=== PATIENT | female | born 1995 | race Caucasian/White ===

== ENCOUNTER 2024-04-13 04:40 | Emergency (ER) | payer BC ==
[~2024-04-13] VITALS: Ht 175.3 cm; Wt 86.9 kg
[2024-04-13 05:06] LABS: EOSINOPHILS # (AUTO) 0.5 X10'3 (0-0.9)
[2024-04-13 05:08] LABS: BASOPHILS % (AUTO) 0.4 % (0-1); EOSINOPHILS % (AUTO) 5.1 % (0-6); HEMATOCRIT 44.1 % (35.0-45.0); HEMOGLOBIN 15.1 g/dl (12.0-16.0); LYMPHOCYTES # (AUTO) 3.4 X10'3 (1.1-4.8); LYMPHOCYTES % (AUTO) 31.7 % (21-51); MEAN CORPUSCULAR HEMOGLOBIN 32.7 PG (27.0-31.0); MEAN CORPUSCULAR HGB CONC 34.2 g/dL (33.0-36.5); MEAN CORPUSCULAR VOLUME 95.4 FL (78-98); MEAN PLATELET VOLUME 8.3 FL (7.4-10.4); MONOCYTES # (AUTO) 0.9 X10'3 (0-0.9); MONOCYTES % (AUTO) 8.6 % (2-12); NEUTROPHILS # (AUTO) 5.8 X10'3 (1.8-7.7); NEUTROPHILS % (AUTO) 54.2 % (42-75); PLATELET COUNT 258 X10'3 (140-440); RED BLOOD COUNT 4.62 X10'6 (4.20-5.60); RED CELL DISTRIBUTION WIDTH 12.8 % (11.5-14.5); WHITE BLOOD COUNT 10.8 X10'3 (4.5-11.0)
[2024-04-13 05:09] VITALS: TEMP 98
[2024-04-13 05:28] LABS: ALANINE AMINOTRANSFERASE 17 U/L (12-78); ALBUMIN 4.1 G/DL (3.4-5.0); ALBUMIN/GLOBULIN RATIO 1.4 (1.1-1.5); ALKALINE PHOSPHATASE 83 IU/L (46-116); ANION GAP 7 (8-16); ASPARTATE AMINO TRANSFERASE 17 U/L (10-37); BILIRUBIN,TOTAL 0.5 MG/DL (0.1-1.0); BLOOD UREA NITROGEN 10 MG/DL (7-18); BUN/CREATININE RATIO 15.9 (10.0-20.0); CALCIUM 8.8 MG/DL (8.5-10.1); CHLORIDE 104 MMOL/L (99-107); CREATININE 0.63 MG/DL (0.40-0.90); GLUCOSE 102 MG/DL (70-104); POTASSIUM 3.4 MMOL/L (3.5-5.1); SODIUM 139 MMOL/L (135-145); TOTAL CARBON DIOXIDE 27.7 MMOL/L (24-32); eCRCL 138 ML/MIN; eGFR > 90 ML/MIN
[2024-04-13 05:36] LABS: PRO BRAIN NATRIURETIC PEPTIDE < 30 PG/ML (0-125)
[2024-04-13] MEDS: potassium Cl 20 mEq SR tablet PO STA (06:49)
[2024-04-13] MEDS: acetaminophen 325mg tablet PO ONE (06:50)
[2024-04-13] MEDS: ketorolac trometh 15mg/ml vial 15 MG/ML ML IV ONE (08:49)
[2024-04-13 08:57] VITALS: BP 127/80; PULSE 80; RESP 15; O2SAT 99
== END 2024-04-13 09:10 | disposition home or self-care (01) ==
LOC: ER 04:41
DX: M25.512 Pain in left shoulder (principal); I49.8 Other specified cardiac arrhythmias
CPT/HCPCS: 36415; 71045; 80053; 83880; 84484; 85025; 85379; 93005; 96374; 99285; J1885

== ENCOUNTER 2025-07-10 16:13 | Emergency (ER) | payer BC ==
[~2025-07-10] VITALS: Ht 175.3 cm; Wt 80.4 kg
[2025-07-10 16:18] VITALS: BP 138/97; PULSE 90; RESP 18; O2SAT 99
--- NOTE | 2025-07-10 16:59 | RADIOLOGY REPORT ---
INDICATION: fall TECHNIQUE: 3 radiographic views of the left shoulder were obtained. COMPARISON: None FINDINGS/IMPRESSION: No acute fracture or dislocations. No significant degenerative changes. No acute soft tissue abnormalities. No radiographic foreign body. Visualized portions of the lungs are clear.
--- NOTE | 2025-07-10 17:04 | RADIOLOGY REPORT ---
INDICATION: fall TECHNIQUE: 3 views of the cervical spine were obtained. COMPARISON: None FINDINGS: The cervical spine is visualized from C1-C7. No acute cervical fractures or subluxations are identified. Alignment appears unremarkable. Prevertebral soft tissues are within normal limits. IMPRESSION: 1. No acute cervical fracture or subluxations.
--- NOTE | 2025-07-10 18:35 | Physician Documentation ---
History of Present Illness ~ Chief Complaint: Mechanical Fall Stated Complaint: FALL/L SIDE PAIN Time Seen by MD: 18:12 HPI This is a 30-year-old female who presents with left shoulder pain, left buttock pain, and right lateral neck pain after a slip and fall on a set of stairs in which she then slid down on her side approximately 10 stairs last night. Patient reports hitting the back of her head on stairs with mild pain to the area. No loss of consciousness reported, no blood thinners reported. Tetanus within 5 Years?: Yes Medication Reconciliation Allergies: Coded Allergies: No Known Allergies (Unverified , 07/10/25) Scheduled Ibuprofen (Ibuprofen), 1 TAB PO Q8H Lidocaine (Lidoderm), 1 PATCH TOP DAILY Past Medical History Past Medical History: No Pertinent History Review of Systems ROS As stated above in the HPI, otherwise all systems are reviewed and negative. Physical Exam Vital Signs: Temperature: 98.4, Source: Temporal, Heart Rate: 90, Respiratory Rate: 18, BP: 138/97, Pulse Oximetry: 99, Weight: 80.400 Oxygen Flow Rate: 0 Physical Exam VITALS: Reviewed and as above. GENERAL: Alert, nontoxic appearing, no apparent distress. HEENT: Right lateral neck mild tenderness to palpation. PERRLA, EOMI, no central C-spine tenderness. Posterior scalp mildly tender to palpation, no lacerations, no hematoma. RESPIRATORY: No increased work of breathing, no respiratory distress, speaking in full clear sentences CV: Brisk capillary refill to fingers of left hand, left radial pulse intact BACK: Left posterior shoulder and scapular tenderness. No central spinal tenderness. MUSCULOSKELETAL: Left posterior shoulder tender to palpation, no lateral or anterior left shoulder pain., no obvious deformity, range of motion intact to left elbow, wrist, and fingers. NEURO: Sensation intact to right extremity distal to injury. GCS 15 Progress Results/Orders Results/Orders Orders - [facility] (07/10/25 16:30) Shoulder, Complete (Min 2 Vws) (07/10/25 16:30) Completed Orders - [facility]UC[facility] SP[facility] (07/10/25 16:30) Shoulder, Complete (Min 2 Vws) (07/10/25 16:30) Vital Signs 12/29/25 12/29/25 16:18 18:50 Temp 98.4 98.4 Pulse 90 Resp 18 B/P (MAP) 138/97 Pulse Ox 99 O2 Flow Rate 0 EKG/XRAY/CT/US/VASC/MRI Bone/Soft Tissue X-Ray (Spine) : Additional Comment Exam: [facility] INDICATION: fall TECHNIQUE: 3 views of the cervical spine were obtained. COMPARISON: None FINDINGS: The cervical spine is visualized from C1-C7. No acute cervical fractures or subluxations are identified. Alignment appears unremarkable. Prevertebral soft tissues are within normal limits. IMPRESSION: 1. No acute cervical fracture or subluxations. Electronically Signed by:CARMINA MCGEE MD Date & Time: 07/10/25 1702 Dictated by: CARMINA MCGEE MD Dictation date and time: 07/10/25 1630 I have reviewed and agree with the radiology report. I have reviewed and interpreted the imaging as: No vertebral fractures or acute misalignment Bone/Soft Tissue X-Ray (Ext.) : Additional Comment Exam: SHOULDER, COMPLETE (MIN 2 VWS) INDICATION: fall TECHNIQUE: 3 radiographic views of the left shoulder were obtained. COMPARISON: None FINDINGS/IMPRESSION: No acute fracture or dislocations. No significant degenerative changes. No acute soft tissue abnormalities. No radiographic foreign body. Visualized portions of the lungs are clear. Electronically Signed by:CARMINA MCGEE MD Date & Time: 07/10/25 1656 Dictated by: CARMINA MCGEE MD Dictation date and time: 07/10/25 1630 I have reviewed and agree with the radiology report. I have reviewed and interpreted the imaging as: No fracture or dislocation Medical Decision Making Additional information obtaine: N/A Findings This 30-year-old female presented with left shoulder pain, right lateral neck pain, and posterior head pain following a slip and fall in which she slid down a set of 10 stairs. Reassuringly patient reported no loss of consciousness and no blood thinner use. Imaging obtained demonstrating no fracture or traumatic misalignment of cervical spine and did not demonstrate evidence of fracture or dislocation to left shoulder. Suspect soft tissue injury to the area. Patient is otherwise well-appearing benign physical exam. Shared decision-making with the patient prescriptions for pain medications were prescribed patient is to follow up with the primary care provider. Patient provided careful return to care precautions, home care instructions and follow up instructions which he verbalized understanding of. Differential Dx:Considerations: Include: Closed head injury, Fracture(s), Intraabdominal injury, Pneumothorax, Cerebral contusion, Spine injury, Abrasion(s), Contusion(s), Laceration(s), Other (Shoulder dislocation, laceration.) Departure Time of Disposition: 18:39 Disposition: HOME / SELF CARE / HOMELESS Impression: Primary Impression: Shoulder pain Qualified Codes: M25.512 - Pain in left shoulder Additional Impressions: Neck pain on right side Head injury, acute, without loss of consciousness Qualified Codes: S09.90XA - Unspecified injury of head, initial encounter Condition: Improved Discharge Instructions: Shoulder Pain, [id number] Additional Instructions: Please use the prescribed medications for pain. Please follow up with your primary care provider in the next few days. Please return to the emergency department for any new or worsening concerning symptoms including but not limited to new weakness or numbness in your legs or arms, or loss of bowel or bladder control. Referrals: NO PRIMARY CARE PROVIDER (PCP) Prescriptions Lidocaine (Lidoderm) 5 % Adh..patch 1 PATCH TOP DAILY for 10 Days, #10 PATCH 0 Refills may wear up to 12 hours Prov: LUCAS SPANN 07/10/25 Ibuprofen (Ibuprofen) 800 Mg Tablet 1 TAB PO Q8H for pain for 10 Days, #30 TAB 0 Refills Prov: LUCAS SPANN 07/10/25 Education Educated: Patient Educated regarding: diagnosis, treatment, prognosis, need for follow up Signature Scribe Signature: No scribe Attestation: The note accurately reflects work and decisions made by me.CUBA Kelly 07/10/25 18:42 LUCAS SPANN Jul 10, 2025 18:35
[2025-07-10] MEDS ORDERED: LIDO-52 TOP (18:42)
[2025-07-10] MEDS ORDERED: IBUP-1986 PO (18:42)
[2025-07-10 18:50] VITALS: TEMP 98.4
== END 2025-07-10 18:52 | disposition home or self-care (01) ==
LOC: ER 16:13
DX: S09.90XA Unspecified injury of head, initial encounter (principal); M25.512 Pain in left shoulder; M54.2 Cervicalgia; Z79.899 Other long term (current) drug therapy; W10.9XXA Fall (on) (from) unspecified stairs and steps, initial encounter; Y93.89 Activity, other specified; Y92.89 Other specified places as the place of occurrence of the external cause; Y99.8 Other external cause status
CPT/HCPCS: 72040; 73030; 99284